=== PATIENT | female | born 1985 | race Caucasian/White ===

== ENCOUNTER 2016-08-20 08:46 | Emergency (ER) | payer BC ==
[2016-08-20 09:01] LABS: URINE APPEARANCE CLEAR; URINE BILIRUBIN MODERATE (NEGATIVE); URINE BLOOD NEGATIVE (NEGATIVE); URINE COLOR YELLOW; URINE GLUCOSE (UA) NEGATIVE (NEGATIVE); URINE KETONE TRACE (NEGATIVE); URINE LEUKOCYTE ESTERASE NEGATIVE (NEGATIVE); URINE NITRITE NEGATIVE (NEGATIVE)
--- NOTE | 2016-08-20 09:02 | Emergency Department Record ---
History of Present Illness - General Chief complaint: Female Urogenital Problem Stated complaint: URINARY INFECTION Time Seen by Provider: 08/20/16 09:02 Source: Patient Mode of Arrival: Ambulatory Limitations: No limitations - History of Present Illness Initial comments: The patient is here due to a one day hx of R flank and back pain and then dysuria. She also has had diffuse abdominal pain worse on the R than the L. She believes she has a kidney infection or bladder infection. She denies any nausea , vomiting, fever, or diarrhea. The patient denies any hx of kidney stones or abdominal surgeries. Additionally the patient denies any vaginal issues, pelvic pain or discharge. MD Complaint: Dysuria Onset/Timin -: Days(s) Radiation: L flank, R flank Severity scale (1-10): 6 Quality: Aching, Burning Consistency: Constant Improves with: None Worsens with: Urination Patient : No Associated Symptoms: Abdominal pain, Dysuria - Related Data Home Medications Medication Instructions Recorded Confirmed Last Taken Fluoxetine HCl [Prozac] 20 mg PO DAILY 10/12/13 10/12/13 10/12/13 Lisinopril/Hydrochlorothiazide 1 tab PO DAILY 10/12/13 08/20/16 10/12/13 [Lisinopril-Hctz 20-25 mg Tab] Loratadine/Pseudoephedrine 1 each PO DAILY 10/12/13 08/20/16 10/12/13 [Claritin-D 24 Hour Tablet] Previous Rx's Medication Instructions Recorded Naproxen [Naprosyn] 500 mg PO BID #14 tablet. 08/20/16 Allergies Allergy/AdvReac Type Severity Reaction Status Date / Time cephalexin monohydrate Allergy HIVES Verified 10/12/13 13:38 [From Keflex] sulfamethoxazole Allergy HIVES Verified 10/12/13 15:21 [From Bactrim] trimethoprim [From Bactrim] Allergy HIVES Verified 10/12/13 15:21 Travel Screening - Travel/Exposure Within Last 30 Days Have you traveled within the last 30 days?: No Review of Systems Constitutional: Denies: Chills, Fever Eyes: Denies: Eye discharge, Eye pain ENT: Denies: Congestion Respiratory: Denies: Cough, Dyspnea Past Medical History - SOCIAL HISTORY Smoking Status: Never smoker Alcohol Use: Occassional Drug Use: None - RESPIRATORY Hx Respiratory Disorders: No - CARDIOVASCULAR Hx Cardio Disorders: Yes Hx Hypertension: Yes - NEURO Hx Neuro Disorders: No - GI Hx GI Disorders: No - Hx Genitourinary Disorders: No - ENDOCRINE Hx Endocrine Disorders: No - MUSCULOSKELETAL Hx Musculoskeletal Disorders: No - PSYCH Hx Psych Problems: No - HEMATOLOGY/ONCOLOGY Hx Hematology/Oncology Disorders: No Family Medical History Any Significant Family History?: Yes Hx Diabetes: Mother Physical Exam - General General Appearance: Alert, Oriented x3, Cooperative, No acute distress - Head Head exam: Atraumatic, Normocephalic, Normal inspection - Eye Eye exam: Normal appearance, PERRL - Neck Neck exam: Normal inspection, Full ROM. negative: Tenderness - Respiratory Respiratory exam: Normal lung sounds bilaterally. negative: Respiratory distress - Cardiovascular Cardiovascular Exam: Regular rate, Normal rhythm, Normal heart sounds - GI/Abdominal GI/Abdominal exam: Soft, Tenderness (There is diffuse upper abdominal tenderness R>L. ). negative: Guarding, Pulsatile mass, Rebound, Rigid - Extremities Extremities exam: Normal inspection, Full ROM, Normal capillary refill. negative: Tenderness - Back Back exam: Reports: Normal inspection. Denies: CVA tenderness (R), CVA tenderness (L) - Neurological Neurological exam: Alert, Normal gait. negative: Abnormal gait, Motor sensory deficit Course Vital Signs 08/20/16 08:49 Temperature 98.9 F Pulse Rate 112 H Respiratory 20 Rate Blood Pressure 155/103 Pulse Ox 97 - Reevaluation(s) Reevaluation #1: The patient is doing much better at this time. She denies any pain or discomfort. Her repeat temp is 97.6 orally. On exam her abdomen is very soft and nontender in all 4 quads. I did explain to her that the workup is all neg except for the elevated WBC. I did recommend an abdominal recheck tomorrow morning and a repeat WBC. 08/20/16 11:06 Medical Decision Making - Data Complexity MDM Data: Labs Ordered and/or Reviewed, X-Ray Ordered and/or Reviewed - Lab Data Result diagrams: 08/20/16 09:30 08/20/16 09:30 - Radiology Data Radiology results: Report reviewed (Abd CT: WNL with no surgical pathology or any abnormalities.) Disposition Disposition: Discharge Clinical Impression: Flank pain, acute Disposition: Home, Self-Care Condition: (1) Good Instructions: Flank Pain (ED) Additional Instructions: Please drink plenty of fluids and take the Naprosyn for pain. Please see your PCP next week for recheck. Please have your WBC rechecked along with an abdominal physical examination tomorrow morning. Please return to the ER sooner for any increased pain, fever, or vomiting. Prescriptions: Naproxen [Naprosyn] 500 mg PO BID #14 tablet.dr Forms: Patient Portal Access Time of Disposition: 11:06
[2016-08-20 09:06] LABS: URINE BACTERIA NONE SEEN; URINE RBC NONE SEEN (NONE SEEN); URINE WBC NONE SEEN (0-2/hpf)
[2016-08-20] MEDS ORDERED: 0.9 % SODIUM CHLORIDE 1,000 ML BAG IV ONE (09:18)
[2016-08-20] MEDS ORDERED: KETOROLAC 30 MG/ML VIAL IVP ONE (09:18)
[2016-08-20 09:41] LABS: HEMATOCRIT 41.7 % (35.0-47.0); HEMOGLOBIN 13.9 gm/dl (11.6-16.0); MEAN CELL VOLUME 85.3 fl (81-97); MEAN CORPUSCULAR HEMOGLOBIN 28.4 pg (27-33); MEAN CORPUSCULAR HGB CONC 33.3 g/dl (32-36); PLATELET COUNT 190 K/uL (130-400); RED BLOOD COUNT 4.89 M/uL (3.80-5.40); RED CELL DISTRIBUTION WIDTH 13.2 % (11.5-14.5); WHITE BLOOD COUNT W/O DIFF 18.9 K/uL (4.2-12.2)
[2016-08-20 09:54] LABS: PLATELET ESTIMATE NORMAL (NORMAL)
[2016-08-20 09:58] LABS: ALBUMIN 4.8 gm/dL (3.5-5.0); ALKALINE PHOSPHATASE 93 U/L (38-126); ALT/SGPT 40 U/L (9-52); AST/SGOT 18 U/L (14-36); BILIRUBIN,TOTAL 0.93 mg/dL (0.2-1.3); BLOOD UREA NITROGEN 11 mg/dL (7-17); CREATININE 0.8 mg/dL (0.52-1.04); EST GLOMERULAR FILTRATION RATE > 60 ml/min; GLUCOSE,RANDOM 117 mg/dL (70-110); LIPASE 50 U/L (23-300); TOTAL PROTEIN 8.4 gm/dL (6.3-8.2)
== END 2016-08-20 11:18 | disposition home or self-care (01) ==
LOC: ER 08:46
DX: R10.11 Right upper quadrant pain (principal); D72.829 Elevated white blood cell count, unspecified; M54.5 Low back pain; R30.0 Dysuria; I10 Essential (primary) hypertension
CPT/HCPCS: 99284 ×2; 96374; 83690; 80076; 80048; 81001; 81025; 85027; 74176; J1885; J7030

== ENCOUNTER 2016-08-21 10:46 | Emergency (ER) | payer BC ==
[2016-08-21] MEDS ORDERED: ONDANSETRON HCL IV 4 MG/2 ML VIAL IV ONE (11:10)
[2016-08-21] MEDS ORDERED: 0.9 % SODIUM CHLORIDE 1,000 ML BAG IV ONE ×2 (11:10→11:49)
[2016-08-21] MEDS ORDERED: DICYCLOMINE HCL 10 MG/ML AMPUL IM ONE (11:10)
[2016-08-21] MEDS ORDERED: ACETAMINOPHEN 325 MG TAB PO ONE (11:11)
--- NOTE | 2016-08-21 11:22 | Emergency Department Record ---
History of Present Illness - General Chief complaint: Nausea, Vomiting, Diarrhea Stated complaint: VOMITTING, DIARRHEA Time Seen by Provider: 08/21/16 11:01 Source: Patient Mode of Arrival: Ambulatory - History of Present Illness Initial comments: The patient is here due to a 20 hour hx of first nausea, then loose watery diarrheal stools and then mild vomiting. The patient is having cramping abdominal pain prior to the loose stools. She has only vomited once and states the stools are coming almost every hour and they are very watery with no blood. There is no reported fever, chills, or back pain. The patient was in the ER 24 hours ago for abdominal pain and did have a neg abdominal CT at that time. MD complaint: Diarrhea, Nausea, Vomiting Onset/Timin -: Days(s) Description of Vomiting: Watery Severity: Moderate Severity scale (1-10): 5 Quality: Aching Consistency: Constant - Related Data Home Medications Medication Instructions Recorded Confirmed Last Taken Fluoxetine HCl [Prozac] 20 mg PO DAILY 10/12/13 08/21/16 1 Day Ago Lisinopril/Hydrochlorothiazide 1 tab PO DAILY 10/12/13 08/21/16 1 Day Ago [Lisinopril-Hctz 20-25 mg Tab] Loratadine/Pseudoephedrine 1 each PO DAILY 10/12/13 08/21/16 1 Day Ago [Claritin-D 24 Hour Tablet] Previous Rx's Medication Instructions Recorded Naproxen [Naprosyn] 500 mg PO BID #14 tablet. 08/20/16 Ciprofloxacin HCl [Cipro] 500 mg PO Q12HR #9 tablet 08/21/16 Ondansetron [Zofran Odt] 4 mg SL .Q4-6H PRN #12 tab.rapdis 08/21/16 Allergies Allergy/AdvReac Type Severity Reaction Status Date / Time cephalexin monohydrate Allergy HIVES Verified 08/21/16 10:57 [From Keflex] sulfamethoxazole Allergy HIVES Verified 08/21/16 10:57 [From Bactrim] trimethoprim [From Bactrim] Allergy HIVES Verified 08/21/16 10:57 Travel Screening - Travel/Exposure Within Last 30 Days Have you traveled within the last 30 days?: No - Travel/Exposure Within Last Year Have you traveled outside the [place] in the last year?: No - Additonal Travel Details Have you been exposed to anyone with a communicable illness?: No - Travel Symptoms Symptom Screening: None Review of Systems Constitutional: Reports: Malaise. Denies: Chills, Fever Eyes: Denies: Eye discharge ENT: Denies: Congestion Respiratory: Denies: Cough Cardiovascular: Denies: Arrhythmia, Chest pain Gastrointestinal: Reports: Diarrhea, Nausea, Vomiting Past Medical History - SOCIAL HISTORY Smoking Status: Never smoker Alcohol Use: Occassional Drug Use: None - RESPIRATORY Hx Respiratory Disorders: No - CARDIOVASCULAR Hx Cardio Disorders: Yes Hx Hypertension: Yes - NEURO Hx Neuro Disorders: No - GI Hx GI Disorders: No - Hx Genitourinary Disorders: No - ENDOCRINE Hx Endocrine Disorders: No - MUSCULOSKELETAL Hx Musculoskeletal Disorders: No - PSYCH Hx Psych Problems: No - HEMATOLOGY/ONCOLOGY Hx Hematology/Oncology Disorders: No Family Medical History Any Significant Family History?: Yes Hx Diabetes: Mother Physical Exam - General General Appearance: Alert, Oriented x3, Cooperative, No acute distress - Head Head exam: Atraumatic, Normocephalic, Normal inspection - Eye Eye exam: Normal appearance, PERRL - Neck Neck exam: Normal inspection - Respiratory Respiratory exam: Normal lung sounds bilaterally. negative: Respiratory distress - Cardiovascular Cardiovascular Exam: Regular rate, Normal rhythm, Normal heart sounds, Tachycardia - GI/Abdominal GI/Abdominal exam: Soft, Normal bowel sounds. negative: Guarding, Rebound, Rigid, Tenderness - Extremities Extremities exam: Normal inspection, Full ROM, Normal capillary refill. negative: Tenderness - Neurological Neurological exam: Alert, Normal gait. negative: Abnormal gait, Motor sensory deficit Course Vital Signs 08/21/16 10:52 Temperature 97.3 F L Pulse Rate 144 H Respiratory 18 Rate Blood Pressure 133/93 Pulse Ox 96 - Reevaluation(s) Reevaluation #1: The patient is doing much better at this time. She denies any pain or discomfort at this time. On exam her abdomen is very soft and nontender in all 4 quads. 08/21/16 12:30 Reevaluation #2: The patient is doing much better at this time. She denies any AP, nausea, vomiting or any further diarrhea. Her repeat temp is 97.6 orally and on exam her abdomen is very soft and nontender in all 4 quads. 08/21/16 13:21 Reevaluation #3: The patient is doing very well presently. I did discuss the stool studies that are positive for many WBC's in the stool. Due to that fact we will treat the patient for an infectious cause for the diarrhea with Cipro. She is to F/U with her PCP later this week and to return to the ER if worse. 08/21/16 14:05 Medical Decision Making - Data Complexity MDM Data: Labs Ordered and/or Reviewed - Lab Data Result diagrams: 08/21/16 10:25 08/21/16 10:25 Disposition Disposition: Discharge Clinical Impression: Diarrhea in adult patient Disposition: Home, Self-Care Condition: (1) Good Instructions: Acute Diarrhea (ED) Additional Instructions: Please take the Cipro as directed and use Tylenol or Motrin for pain and fever. Use the Zofran for nausea if needed. Please return to the ER for any fever, pain or worsening vomiting or diarrhea. Please see your PCP in 3-5 days to recheck your WBC. Prescriptions: Ciprofloxacin HCl [Cipro] 500 mg PO Q12HR #9 tablet Ondansetron [Zofran Odt] 4 mg SL .Q4-6H PRN #12 tab.rapdis PRN Reason: Nausea Forms: Patient Portal Access Time of Disposition: 14:08
[2016-08-21 11:31] LABS: HEMATOCRIT 40.6 % (35.0-47.0); HEMOGLOBIN 13.5 gm/dl (11.6-16.0); MEAN CELL VOLUME 85.1 fl (81-97); MEAN CORPUSCULAR HEMOGLOBIN 28.3 pg (27-33); MEAN CORPUSCULAR HGB CONC 33.3 g/dl (32-36); MEAN PLATELET VOLUME 12.1 fl (7.4-10.4); PLATELET COUNT 170 K/uL (130-400); RED BLOOD COUNT 4.77 M/uL (3.80-5.40); RED CELL DISTRIBUTION WIDTH 13.5 % (11.5-14.5); WHITE BLOOD COUNT W/O DIFF 19.4 K/uL (4.2-12.2)
[2016-08-21 11:42] LABS: ALB/GLOB RATIO 1.2 (1.1-1.8); ALBUMIN 4.4 gm/dL (3.5-5.0); ALKALINE PHOSPHATASE 94 U/L (38-126); ALT/SGPT 33 U/L (9-52); AST/SGOT 14 U/L (14-36); BILIRUBIN,TOTAL 0.77 mg/dL (0.2-1.3); BLOOD UREA NITROGEN 8 mg/dL (7-17); CREATININE 0.9 mg/dL (0.52-1.04); EST GLOMERULAR FILTRATION RATE > 60 ml/min; GLUCOSE,RANDOM 150 mg/dL (70-110); LIPASE 23 U/L (23-300)
[2016-08-21] MEDS ORDERED: POTASSIUM CHLORIDE 20 MEQ TABLET PO ONE (11:49)
[2016-08-21] MEDS ORDERED: CIPROFLOXACIN HCL 500 MG TABLET PO ONE (14:01)
== END 2016-08-21 14:16 | disposition home or self-care (01) ==
LOC: ER 10:46
DX: R19.7 Diarrhea, unspecified (principal); R11.2 Nausea with vomiting, unspecified; R10.9 Unspecified abdominal pain
CPT/HCPCS: 99284 ×2; 96374; 96372; 96361; 83690; 80053; 89055; 87427; 85027; J2405; J7030